=== PATIENT | female | born 1965 | race Caucasian/White ===

== ENCOUNTER → 2016-06-21 | Outpatient (CLI) | payer BC | LOC: GMAM 17:35 | PROVIDERS: ATTEND Family Medicine | DX: R10.9 Unspecified abdominal pain (principal); R55 Syncope and collapse ==

== ENCOUNTER 2016-06-23 03:25 | Emergency (ER) | payer BC ==
[2016-06-23 03:46] VITALS: TEMP 97.4
[2016-06-23] MEDS ORDERED: ONDANSETRON ODT 8 MG TAB SL ONE (03:46)
--- NOTE | 2016-06-23 03:56 | ED.PDOC ---
History of Present Illness - General Chief Complaint: GI Problem Stated Complaint: nausea, and dizzy Time Seen by Provider: 06/23/16 03:55 Source: patient, RN notes reviewed, Vital Signs reviewed Exam Limitations: no limitations - History of Present Illness Initial Comments: Elizabeth 51 y/o female with no chronic illness stated that she had syncopal episode 5 days ago at a restaurant in [place] and had 2 broken ribs left side chest as told by his doctor.She declined to go to er in after passing out but followed with her md here in [place] was prescribed tramadol for pain. Severity: moderate Improving Factors: nothing Worsening Factors: nothing Associated Symptoms: nausea/vomiting Allergies/Adverse Reactions: Allergies Codeine Allergy (Severe, Verified 03/12/16 17:38) Vomitting She passes out Home Medications: Ambulatory Orders Albuterol Inhaler [Ventolin Hfa Inhaler] 2 puff INH Q4HR PRN #90 inh 03/12/16 Doxycycline (Monohydrate) [Doxycycline] 100 mg PO BID #20 cap 03/12/16 Ketoconazole (Topical) [Ketoconazole] 2 % TOP BID #60 cre 03/12/16 Promethazine HCl 50 mg PO Q6HRS PRN #30 tab 06/23/16 predniSONE [Prednisone] 10 mg PO BID #7 tab 06/23/16 Review of Systems - Review of Systems Constitutional: States: no symptoms reported EENTM: States: no symptoms reported Respiratory: States: no symptoms reported Cardiology: States: no symptoms reported Gastrointestinal/Abdominal: States: nausea, vomiting Genitourinary: States: no symptoms reported Musculoskeletal: States: other - chest wall pain left Skin: States: no symptoms reported Neurological: States: other - dizziness,history of syncopal episode Past Medical History (General) - Patient Medical History Hx Seizures: No Hx Stroke: No Hx Dementia: No Hx Asthma: No Hx of COPD: No Hx Cardiac Disorders: No Hx Congestive Heart Failure: No Hx Pacemaker: No Hx Hypertension: No Hx Thyroid Disease: No Hx Diabetes: No Hx Gastroesophageal Reflux: No Hx Renal Disease: No Hx Cancer: No Hx of HIV: No Hx Hepatitis C: No Hx MRSA: No Surgical History: appendectomy, other - knee - Vaccination History Hx Tetanus, Diphtheria Vaccination: Yes Hx Influenza Vaccination: No Hx Pneumococcal Vaccination: No - Social History Hx Tobacco Use: Yes Hx Alcohol Use: Yes Hx Substance Use: No Hx Substance Use Treatment: No Hx Depression: No Hx Physical Abuse: No Hx Emotional Abuse: No Hx Suspected Abuse: No - Activities of Daily Living Patient Lives Alone: No - family - Female History Patient : No Family Medical History - Family History Mother Family History: No Known Living Status: Still Living Physical Exam - Physical Exam General Appearance: Alert, Anxious, No apparent distress Eye Exam: bilateral normal Ears, Nose, Throat: hearing grossly normal, normal ENT inspection, normal pharynx Neck: non-tender, full range of motion, supple Respiratory: normal breath sounds, no respiratory distress, other - tenderness left side chest Cardiovascular/Chest: normal peripheral pulses, regular rate, rhythm, no edema, no gallop, no JVD, no murmur Peripheral Pulses: radial,right: 2+, radial,left: 2+ Gastrointestinal/Abdominal: normal bowel sounds, non tender, soft, no organomegaly Back Exam: normal inspection, no CVA tenderness, no vertebral tenderness Extremity: normal range of motion, non-tender, normal inspection Neurologic: no motor/sensory deficits, alert, oriented x 3, other - speech fluent Skin Exam: normal color, warm/dry Lymphatic: no adenopathy Progress - Results/Orders Results/Orders: 06/23/16 03:47 UA [URINALYSIS] Stat 06/23/16 03:56 URINE DRUG SCREEN, 7 ASSAY Stat URINALYSIS Stat 06/23/16 03:58 EKG Assessment ONCE 06/23/16 04:00 EKG STAT Laboratory Results WBC 7.3 K/mm3 (4.8-10.8) 06/23/16 04:40 RBC 5.02 M/mm3 (4.20-5.40) 06/23/16 04:40 Hgb 15.4 gm/dL (12.0-16.0) 06/23/16 04:40 Hct 45.0 % (36.0-47.0) 06/23/16 04:40 MCV 89.7 fl (81.0-99.0) 06/23/16 04:40 MCH 30.6 pg (27.0-31.0) 06/23/16 04:40 MCHC 34.1 g/dL (33.0-37.0) 06/23/16 04:40 RDW 13.7 % (11.5-14.5) 06/23/16 04:40 Plt Count 205 K/mm3 (130-400) 06/23/16 04:40 MPV 7.9 fl (7.40-10.4) 06/23/16 04:40 Absolute Neuts (auto) 6.60 K/uL (1.8-6.8) 06/23/16 04:40 Absolute Lymphs (auto) 0.40 K/uL (1.0-3.4) L 06/23/16 04:40 Absolute Monos (auto) 0.30 K/uL (0.2-0.8) 06/23/16 04:40 Absolute Eos (auto) 0.10 K/uL (0.0-0.4) 06/23/16 04:40 Absolute Basos (auto) 0.00 K/uL (0.0-0.1) 06/23/16 04:40 Neutrophils % 89.8 % (42.0-78.0) H 06/23/16 04:40 Lymphocytes % 5.1 % (20.0-50.0) L 06/23/16 04:40 Monocytes % 4.1 % (2.0-9.0) 06/23/16 04:40 Eosinophils % 0.8 % (1.0-5.0) L 06/23/16 04:40 Basophils % 0.2 % (0.0-2.0) 06/23/16 04:40 Sodium 137 mmol/L (135-145) 06/23/16 04:40 Potassium 3.5 mmol/L (3.6-5.0) L 06/23/16 04:40 Chloride 101 mmol/L (101-111) 06/23/16 04:40 Carbon Dioxide 27 mmol/L (21-31) 06/23/16 04:40 Anion Gap 12.5 (12-18) 06/23/16 04:40 BUN 26 mg/dL (7-18) H 06/23/16 04:40 Creatinine 0.60 mg/dL (0.6-1.3) 06/23/16 04:40 BUN/Creatinine Ratio 43.3 (10-20) H 06/23/16 04:40 Random Glucose 134 mg/dL (70-105) H 06/23/16 04:40 Serum Osmolality 280.6 mOsm/L (275-295) 06/23/16 04:40 Calcium 9.0 mg/dL (8.4-10.2) 06/23/16 04:40 Total Bilirubin 0.7 mg/dL (0.2-1.0) 06/23/16 04:40 AST 19 IU/L (10-42) 06/23/16 04:40 ALT 19 IU/L (10-60) 06/23/16 04:40 Alkaline Phosphatase 68 IU/L (42-121) 06/23/16 04:40 Serum Total Protein 7.8 gm/dL (6.4-8.2) 06/23/16 04:40 Albumin 4.2 g/dl (3.2-5.5) 06/23/16 04:40 Globulin 3.6 gm/dL (2.3-3.5) H 06/23/16 04:40 Albumin/Globulin Ratio 1.2 (1.1-1.9) 06/23/16 04:40 Lipase 24 U/L (22-51) D 06/23/16 04:40 - EKG/XRAY/CT EKG: Sinus, no ST T wave changes - no acute changes noted Departure - Departure Clinical Impression: Dizziness, nonspecific Nausea & vomiting Qualifiers: Vomiting type: unspecified Vomiting Intractability: non-intractable Qualifier Code: (R11.2) Nausea with vomiting, unspecified Time of Disposition: 05:44 Disposition: Discharge to Home or Self Care Condition: Good Departure Forms: ED Discharge - Pt. Copy, Patient Portal Self Enrollment Instructions: DI for Dizziness-Nonvertigo, Combating Dizziness in Older Adults Prescriptions: Promethazine HCl 50 mg PO Q6HRS PRN #30 tab PRN Reason: Nausea predniSONE [Prednisone] 10 mg PO BID #7 tab Home Medications: Ambulatory Orders Albuterol Inhaler [Ventolin Hfa Inhaler] 2 puff INH Q4HR PRN #90 inh 03/12/16 Doxycycline (Monohydrate) [Doxycycline] 100 mg PO BID #20 cap 03/12/16 Ketoconazole (Topical) [Ketoconazole] 2 % TOP BID #60 cre 03/12/16 Promethazine HCl 50 mg PO Q6HRS PRN #30 tab 06/23/16 predniSONE [Prednisone] 10 mg PO BID #7 tab 06/23/16
[2016-06-23] MEDS ORDERED: PROMETHAZINE HCL INJ 25 MG/ML VIAL IM ONE (03:58)
[2016-06-23] MEDS ORDERED: LACTATED RINGERS 1,000 ML IVS ONE (03:58)
[2016-06-23] MEDS ORDERED: DEXAMETHASONE INJ 4 MG/ML VIAL IV ONE (03:59)
[2016-06-23] MEDS ORDERED: KETOROLAC TROMETHAMINE INJ 30 MG/ML VIAL IV ONE (04:33)
[2016-06-23 06:01] VITALS: BP 131/84; O2SAT 95
== END 2016-06-23 06:01 | disposition home or self-care (01) ==
LOC: ER 03:25
DX: R11.2 Nausea with vomiting, unspecified (principal); R42 Dizziness and giddiness; Z87.891 Personal history of nicotine dependence; Z88.6 Allergy status to analgesic agent; Z79.899 Other long term (current) drug therapy
CPT/HCPCS: 80053; 83690; 85025; 93005; J1100; J2550; J7120

== ENCOUNTER 2016-11-07 11:17 | Emergency (ER) | payer BC ==
[2016-11-07 11:33] VITALS: BP 140/80; TEMP 98.3; O2SAT 98
--- NOTE | 2016-11-07 11:55 | ED.PDOC ---
History of Present Illness - General Chief Complaint: Eye Problems Stated Complaint: Bilateral Eye pain/itchy Time Seen by Provider: 11/07/16 11:50 Source: patient, RN notes reviewed Exam Limitations: no limitations - History of Present Illness Initial Comments: Maribel Smith 51 y/o female stated that her right eye was red and matted yesterday as well as itching then on waking up this am noted left eye was red , matted and itching. Timing/Duration: gradual, yesterday EENT Location: eye (R), eye (L) Prearrival Treatment: no prearrival treatment Presenting Symptoms: both eyes red and itching Improving Factors: nothing Worsening Factors: nothing Associated Symptoms: denies symptoms Allergies/Adverse Reactions: Allergies Codeine Allergy (Severe, Verified 03/12/16 17:38) Vomitting She passes out Home Medications: Ambulatory Orders Albuterol Inhaler [Ventolin Hfa Inhaler] 2 puff INH Q4HR PRN #90 inh 03/12/16 Doxycycline (Monohydrate) [Doxycycline] 100 mg PO BID #20 cap 03/12/16 Ketoconazole (Topical) [Ketoconazole] 2 % TOP BID #60 cre 03/12/16 Promethazine HCl 50 mg PO Q6HRS PRN #30 tab 06/23/16 predniSONE 10 mg PO BID #7 tab 06/23/16 Sulfacetamide Sod-Prednisolone [Blephamide] 2 cody OP TID #1 cody 11/07/16 Review of Systems - Review of Systems Constitutional: States: no symptoms reported EENTM: States: see HPI Respiratory: States: no symptoms reported Cardiology: States: no symptoms reported Gastrointestinal/Abdominal: States: no symptoms reported Genitourinary: States: no symptoms reported Musculoskeletal: States: no symptoms reported Skin: States: no symptoms reported Neurological: States: no symptoms reported Endocrine: States: no symptoms reported Hematologic/Lymphatic: States: no symptoms reported Past Medical History (General) - Patient Medical History Hx Seizures: No Hx Stroke: No Hx Dementia: No Hx Asthma: No Hx of COPD: No Hx Cardiac Disorders: No Hx Congestive Heart Failure: No Hx Pacemaker: No Hx Hypertension: No Hx Thyroid Disease: No Hx Diabetes: No Hx Gastroesophageal Reflux: No Hx Renal Disease: No Hx Cancer: No Hx of HIV: No Hx Hepatitis C: No Hx MRSA: No Surgical History: appendectomy, other - left knee - Vaccination History Hx Tetanus, Diphtheria Vaccination: No Hx Influenza Vaccination: No Hx Pneumococcal Vaccination: No Immunizations Up to Date: No - Social History Hx Tobacco Use: Yes Hx Alcohol Use: Yes Hx Substance Use: No Hx Substance Use Treatment: No Hx Depression: No Hx Physical Abuse: No Hx Emotional Abuse: No Hx Suspected Abuse: No - Female History Patient : No Family Medical History - Family History Mother Family History: No Known Living Status: Still Living Physical Exam - Physical Exam General Appearance: Alert, Comfortable, No apparent distress Eye Exam: bilateral normal - with glasses, bilateral other - hyperemic palpebral conjuctiva VA 20/20 bilaterally Ear Exam: bilateral ear: auricle normal, canal normal, TM normal Nasal Exam: normal inspection Throat Exam: normal mouth inspection, pharynx normal Neck: non-tender, full range of motion Cardiovascular/Respiratory: regular rate, rhythm, no M/R/G, normal peripheral pulses, normal breath sounds Abdominal Exam: non-tender, no organomegaly Neurologic: alert, normal mood/affect, oriented x 3 Skin Exam: normal color, warm/dry Progress - Progress Progress: 11/07/16 12:01 Vital Signs - 8 hr 11/07/16 11:29 Temperature 98.3 F Pulse Rate [ 73 Left Radial] Respiratory 18 Rate Blood Pressure 140/80 [Left Arm] O2 Sat by Pulse 98 Oximetry Departure - Departure Clinical Impression: Conjunctivitis Qualifiers: Conjunctivitis type: unspecified Laterality: bilateral Qualified Code(s): H10.9 - Unspecified conjunctivitis Time of Disposition: 12:02 Disposition: Discharge to Home or Self Care Condition: Good Departure Forms: ED Discharge - Pt. Copy, Patient Portal Self Enrollment Instructions: DI for Conjunctivitis, Conjunctivitis, The Eyes Have It: Conjunctivitis Referrals: Phil Corbin MD [Primary Care Provider] - 1-2 Weeks Prescriptions: Sulfacetamide Sod-Prednisolone [Blephamide] 2 cody OP TID #1 cody Home Medications: Ambulatory Orders Albuterol Inhaler [Ventolin Hfa Inhaler] 2 puff INH Q4HR PRN #90 inh 03/12/16 Doxycycline (Monohydrate) [Doxycycline] 100 mg PO BID #20 cap 03/12/16 Ketoconazole (Topical) [Ketoconazole] 2 % TOP BID #60 cre 03/12/16 Promethazine HCl 50 mg PO Q6HRS PRN #30 tab 06/23/16 predniSONE 10 mg PO BID #7 tab 06/23/16 Sulfacetamide Sod-Prednisolone [Blephamide] 2 cody OP TID #1 cody 11/07/16
== END 2016-11-07 12:11 | disposition home or self-care (01) ==
LOC: ER 11:17
DX: H10.9 Unspecified conjunctivitis (principal); Z88.6 Allergy status to analgesic agent; Z79.899 Other long term (current) drug therapy; Z87.891 Personal history of nicotine dependence

== ENCOUNTER → 2019-10-10 | Outpatient (CLI) | payer BC ==
--- NOTE | 2019-10-10 16:11 | US ---
EXAM DESCRIPTION: Gall Bladder: ULTRASOUND. CLINICAL HISTORY: EPIGASTRIC PN COMPARISON: None. TECHNIQUE: Transabdominal scanning: Smith-scale and Doppler modes.. Technically difficult study due to patient large body habitus. FINDINGS: Gallbladder: 2.2 x 1.7 cm echogenic stone with acoustic shadowing. No fluid around the gallbladder. No wall thickening. 2.1 mm. Non-tender with transducer pressure. Common bile duct: caliber 4.0 mm within normal limits. Liver: Increased echogenicity; contour liver capsule smooth where seen. No fluid around the liver. Intrahepatic biliary ducts normal caliber. Doppler hepatopedal flow portal vein.. 11 mm normal caliber. Long axis right lobe 15.7 cm. Pancreas: normal size increased echogenicity. Duct not seen. Aorta: 2.4 cm proximally normal caliber. Right kidney: long axis is 10.9 cm. Normal cortical thickness and echogenicity. No echogenic stones or hydronephrosis.. IMPRESSION: 1. 2.2 cm stone in the gallbladder. No wall thickening or fluid. Nontender with transducer pressure. Normal caliber of the common bile duct. 2. Steatosis of the liver upper normal limits in size. Otherwise unremarkable. Fatty infiltration of the pancreas. 3. Right kidney unremarkable. Normal caliber of the proximal aorta. Electronically signed by: Hansel Adams MD 10/10/2019 4:10 PM CDT
== END ==
LOC: US 11:07
PROVIDERS: ATTEND Nurse Practitioner Family
DX: K80.20 Calculus of gallbladder without cholecystitis without obstruction (principal); K76.0 Fatty (change of) liver, not elsewhere classified; K86.89 Other specified diseases of pancreas

== ENCOUNTER 2019-10-26 05:37 | Day surgery (SDC) | payer BC ==
[2019-10-26] MEDS ORDERED: LACTATED RINGERS 1,000 ML ONE ×2 (06:46→12:29)
[2019-10-26] MEDS ORDERED: SODIUM CHLORIDE 0.9% 1000ML 1,000 ML ONE (06:48)
[2019-10-26] MEDS ORDERED: DEXAMETHASONE INJ 10 MG/ML VIAL ONE (07:00)
[2019-10-26] MEDS ORDERED: PROPOFOL 200 MG/20 ML VIAL IV ONE (07:00)
[2019-10-26] MEDS ORDERED: MAGNESIUM SULFATE INJ 1 GM/2 ML VIAL ONE (07:00)
[2019-10-26] MEDS ORDERED: ePHEDrine SULF 50 MG/ML ONE (07:00)
[2019-10-26] MEDS ORDERED: LIDOCAINE 1% 10 ML VIAL INJ ONE (07:00)
[2019-10-26] MEDS ORDERED: METOPROLOL TARTRATE INJ 5 MG/5 ML VIAL IV ONE (07:00)
[2019-10-26] MEDS ORDERED: BUPIVACAINE 0.5% W/EPI 30 ML VIAL INJ ONE (07:07)
[2019-10-26] MEDS ORDERED: LACTATED RINGERS 1,000 ML IVS ONE (10:25)
[2019-10-26] MEDS ORDERED: MIDAZOLAM INJ 5 MG/5 ML VIAL ONE (10:46)
[2019-10-26] MEDS ORDERED: SUGAMMADEX SODIUM 200 MG/2 ML VIAL IV ONE ×3 (11:03→12:27)
[2019-10-26] MEDS ORDERED: fentaNYL CITRATE INJ 50 MCG/ML 2 ML AMP ONE ×2 (11:04→12:18)
[2019-10-26] MEDS ORDERED: KETAMINE HCL 100 MG/ML VIAL ONE (11:04)
[2019-10-26] MEDS ORDERED: FAMOTIDINE INJ 10 MG/ML VIAL IV ONE (11:04)
[2019-10-26] MEDS ORDERED: ROCURONIUM BROMIDE 10 MG/ML VIAL ONE (11:04)
[2019-10-26] MEDS ORDERED: SCOPOLAMINE PATCH 1.5MG 1 EA TD ONE (11:13)
[2019-10-26] MEDS ORDERED: hydrALAZINE HCl 20 MG/ML VIAL ONE (11:48)
[2019-10-26] MEDS ORDERED: HYDROmorphone HCL INJ 2 MG/ML VIAL ONE (11:54)
[2019-10-26] MEDS ORDERED: ONDANSETRON INJ 4 MG/2 ML VIAL IV ONE (12:57)
[2019-10-26] MEDS ORDERED: ONDANSETRON INJ 4 MG/2 ML VIAL ONE (12:58)
--- NOTE | 2019-10-26 13:11 | OP ---
DATE OF PROCEDURE: 10/26/19 PREOPERATIVE DIAGNOSIS: 1. Symptomatic cholelithiasis. POSTOPERATIVE DIAGNOSIS: 1. Symptomatic cholelithiasis. PROCEDURE: 1. Laparoscopic cholecystectomy. SURGEON: Duke Cruz MD. ANESTHESIA: General and local. FINDINGS: Normal anatomy. COMPLICATIONS: None. ESTIMATED BLOOD LOSS: Minimal. SPECIMEN: Gallbladder. CONDITION: Stable. PLAN: Discharge. INDICATION: As stated. PROCEDURE: General anesthesia was induced. The patient was prepped and draped in sterile fashion. Marcaine 0.5% with epinephrine was used at all incision sites. While maintaining upward traction, a mandi was made near the base of the umbilicus. Veress needle was introduced. There was free flow of fluid into the peritoneal cavity which was insufflated to an appropriate level with CO2 gas. The 5 mm trocar was placed followed by the camera. There was no evidence of bleeding or bowel injury. The patient was positioned and subxiphoid and lateral ports were placed under direct visualization without difficulty. The gallbladder fundus was easily identified. It was grasped and retracted superiorly and laterally. There were quite a few anterior adhesions that were easily taken down exposing the infundibulum. It was grasped. The duct and artery were then dissected out and clearly visualized through the triangle of Calot. Each was triply ligated. The gallbladder was then dissected off the fossa routinely and removed through the subxiphoid incision. She did have a moderate sized stone identified upon removal. The fossa was examined. It remained hemostatic. The clips were intact. There was no bleeding or bile leakage. The subxiphoid fascia was then closed with 0 Vicryl using the suture passer. It was airtight and non-bleeding. The remaining trocars were removed. There was no bleeding from the trocar sites. The wounds were irrigated and closed with Monocryl. Dressings were applied. The patient was awakened and taken to Recovery in to be discharged. #[id number] cc: LEONEL Hager
[2019-10-26] MEDS ORDERED: HYDROcodone 5MG/APAP 325MG 1 EA TAB ONE (13:12)
[2019-10-26] MEDS ORDERED: HYDROcodone 5MG/APAP 325MG 1 EA TAB PO ONE (13:30)
[2019-10-26 14:43] VITALS: BP 142/89; TEMP 96.7; O2SAT 96
== END 2019-10-26 14:40 | disposition home or self-care (01) ==
LOC: AMB 05:37
PROVIDERS: ATTEND Surgery
DX: K80.10 Calculus of gallbladder with chronic cholecystitis without obstruction (principal); I10 Essential (primary) hypertension; E66.9 Obesity, unspecified; F17.200 Nicotine dependence, unspecified, uncomplicated; Z88.5 Allergy status to narcotic agent; Z79.899 Other long term (current) drug therapy
CPT/HCPCS: 00790; 36415; 47562; 80048; 81025; 85025; 93005; J0360; J1100; J1170; J2250; J2405; J3010; J3475; J3490; J7030; J7120

== ENCOUNTER 2020-06-02 16:52 | Emergency (ER) | payer BC ==
--- NOTE | 2020-06-02 17:09 | ED.PDOC ---
History of Present Illness - General Time Seen by Provider: 06/02/20 17:05 Source: patient Additional Information: 55-year-old female, presents to the ER because of dark stools, patient said that she noticed a dark stool yesterday, and also this morning and has some point when she was having a bowel movement she became dizzy and passed out, patient has neurological deficit at the moment, admits some diffuse abdominal pain and the dark stools, no blood thinners, patient admits to vaping but denies drugs denies cigarettes, - History of Present Illness Timing/Duration: other - yesterday Improving Factors: nothing Worsening Factors: nothing Associated Symptoms: denies symptoms Allergies/Adverse Reactions: Allergies Codeine Allergy (Severe, Verified 10/22/19 11:19) Vomitting She passes out. Patient also states itching. Home Medications: Ambulatory Orders Bc Powder 3 ea PO DAILY 10/22/19 Losartan Potassium 100 mg PO DAILY 10/22/19 Review of Systems - Review of Systems Constitutional: States: no symptoms reported EENTM: States: no symptoms reported Respiratory: States: no symptoms reported Gastrointestinal/Abdominal: States: nausea Musculoskeletal: States: no symptoms reported Skin: States: no symptoms reported Neurological: States: no symptoms reported Endocrine: States: no symptoms reported, intolerance to heat Past Medical History (General) - Patient Medical History Hx Seizures: No Hx Stroke: No Hx Dementia: No Hx Asthma: No Hx of COPD: No Hx Cardiac Disorders: No Hx Congestive Heart Failure: No Hx Pacemaker: No Hx Hypertension: No Hx Thyroid Disease: No Hx Diabetes: No Hx Gastroesophageal Reflux: No Hx Renal Disease: No Hx Cancer: No Hx of HIV: No Hx Hepatitis C: No Hx MRSA: No - Vaccination History Hx Tetanus, Diphtheria Vaccination: No Hx Influenza Vaccination: No Hx Pneumococcal Vaccination: No - Social History Hx Tobacco Use: Yes Hx Alcohol Use: Yes Hx Substance Use: No Hx Substance Use Treatment: No Hx Depression: No Hx Physical Abuse: No Hx Emotional Abuse: No Hx Suspected Abuse: No - Female History Patient : No Family Medical History - Family History Mother Family History: No Known Living Status: Still Living Physical Exam - Physical Exam General Appearance: Well Developed, Well Groomed, Well Nourished Eye Exam: bilateral normal Ears, Nose, Throat: hearing grossly normal, normal ENT inspection, normal pharynx Neck: non-tender, full range of motion, supple, normal inspection Respiratory: chest non-tender, lungs clear, normal breath sounds, no respiratory distress, no accessory muscle use Cardiovascular/Chest: normal peripheral pulses, regular rate, rhythm, no edema, no gallop, no JVD, no murmur Gastrointestinal/Abdominal: normal bowel sounds, non tender, soft, no organomegaly, no pulsatile mass Rectal Exam: black stool, hemorrhoids Extremity: normal range of motion 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, no motor/sensory deficits, alert, normal mood/affect, oriented x 3 Skin Exam: normal color Lymphatic: no adenopathy Progress - Progress Progress: 55-year-old female, presents to the ER because of having diarrhea today pain chest pain, syncope episode, patient has had a history of coronary artery disease with one previous stent, patient troponins were negative EKG did not show any acute ischemic changes, heart rate at 97 no extravaginal depressions, patient has neurological deficit, and does admit feeling back today, and she stated that she was on the phone gastropharyngeal remember and denies any bloody stools. Because of patient history of coronary disease, not any neurological deficit, and not feeling well, I decided to consult the case with the hospitalist for admission, vomiting, follow-up on any changes in delta troponins chest xrqay Did not show any evidence of mediastinum to suggest aortic dissection, Patient is COVID-19 negative 06/02/20 17:20 Departure - Departure Clinical Impression: Chest pain Qualifiers: Chest pain type: unspecified Qualified Code(s): R07.9 - Chest pain, unspecified Syncope Qualifiers: Syncope type: unspecified Qualified Code(s): R55 - Syncope and collapse Disposition: Admit Patient Condition: Fair Referrals: Radhika Hines NP [Primary Care Provider] - 1-2 Weeks Home Medications: Ambulatory Orders Bc Powder 3 ea PO DAILY 10/22/19 Losartan Potassium 100 mg PO DAILY 10/22/19 Decision To Admit - Decistion To Admit Decision to Admit Reason: Admit from ER Decision to Admit Date: 06/02/20 Decision to Admit Time: 17:19
--- NOTE | 2020-06-02 17:33 | RAD ---
EXAM: Chest,1 View CLINICAL INDICATION: Syncope COMPARISON: 03/12/2016 FINDINGS: A single view of the chest was obtained. The heart size is normal. The pulmonary vascularity is unremarkable. The lungs are clear. There is no consolidation, infiltrate, pleural effusion, or pneumothorax. IMPRESSION: No evidence of active pulmonary disease. Electronically signed by: Chris Gustafson MD 06/02/2020 5:32 PM BUSINESS INTELLIGENCE DIRECTOR
--- NOTE | 2020-06-02 17:51 | ED.PDOC ---
History of Present Illness - General Chief Complaint: GI Problem Stated Complaint: rectal bleeding Time Seen by Provider: 06/02/20 17:05 Source: RN notes reviewed, Vital Signs reviewed Exam Limitations: no limitations Additional Information: , ER because since last night she is having some dark stools, and this morning when she was in the toilet she had some dark stools, but also has some victor manuel phoresis lightheadedness, and she had a syncope episode, she is has some chest discomfort and some epigastric pain, patient does not have any medical problems no blood thinners she vapes but does not smoke does not drink, no illegal drugs. Present during initial evaluation, does admit some diffuse abdominal pain epigastric discomfort at the moment, - History of Present Illness Timing/Duration: other - yesterday Improving Factors: nothing Worsening Factors: nothing Associated Symptoms: chest pain, nausea/vomiting, other - syncope Allergies/Adverse Reactions: Allergies Codeine Allergy (Severe, Verified 06/02/20 17:24) Vomitting She passes out. Patient also states itching. Home Medications: Ambulatory Orders Bc Powder 3 ea PO DAILY 10/22/19 Losartan Potassium 100 mg PO DAILY 10/22/19 Review of Systems - Review of Systems Constitutional: States: diaphoresis EENTM: States: no symptoms reported Respiratory: States: no symptoms reported Cardiology: States: chest pain Gastrointestinal/Abdominal: States: abdominal pain, other - gi bleeding Genitourinary: States: no symptoms reported Musculoskeletal: States: no symptoms reported Skin: States: no symptoms reported Neurological: States: no symptoms reported Endocrine: States: no symptoms reported Hematologic/Lymphatic: States: no symptoms reported Past Medical History (General) - Patient Medical History Hx Seizures: No Hx Stroke: No Hx Dementia: No Hx Asthma: No Hx of COPD: No Hx Cardiac Disorders: No Hx Congestive Heart Failure: No Hx Pacemaker: No Hx Hypertension: No Hx Thyroid Disease: No Hx Diabetes: No Hx Gastroesophageal Reflux: No Hx Renal Disease: No Hx Cancer: No Hx of HIV: No Hx Hepatitis C: No Hx MRSA: No Surgical History: appendectomy, cholecystectomy, other - Vaccination History Hx Tetanus, Diphtheria Vaccination: No Hx Influenza Vaccination: No Hx Pneumococcal Vaccination: No - Social History Hx Tobacco Use: Yes Hx Alcohol Use: Yes Hx Substance Use: No Hx Substance Use Treatment: No Hx Depression: No Hx Physical Abuse: No Hx Emotional Abuse: No Hx Suspected Abuse: No - Female History Patient : No Family Medical History - Family History Mother Family History: No Known Living Status: Still Living Physical Exam - Physical Exam General Appearance: Well Developed, Well Groomed, Well Hydrated, Well Nourished Ears, Nose, Throat: hearing grossly normal, normal ENT inspection, normal pharynx Neck: non-tender, full range of motion, supple, normal inspection Respiratory: chest non-tender, lungs clear, normal breath sounds, no respiratory distress, no accessory muscle use Cardiovascular/Chest: normal peripheral pulses, regular rate, rhythm, no edema, no gallop, no JVD, no murmur Gastrointestinal/Abdominal: tenderness, other - dark stool Rectal Exam: black stool, hemorrhoids Back Exam: normal inspection Extremity: normal range of motion, non-tender, normal inspection, no pedal edema, no calf tenderness, normal capillary refill Neurologic: chief information officer II-XII nml as tested, no motor/sensory deficits, alert, normal mood/affect, oriented x 3 Skin Exam: normal color Lymphatic: no adenopathy Progress - Progress Progress: 06/02/20, Presents to the ER because of a syncope episode and dark stools, patient is not on any blood thinners, has some chest discomfort and shortness of breath or nausea or epigastric pain, and diffuse abdominal pain on physical exam I did notice some nonthrombosed external hemorrhoid, and dark stools, patient hemoglobin was within normal limits patient EKG did not show any acute ischemic changes, patient heart rate was 97 anglican of depression, chest x-ray did not show any abnormalities, but I noted the patient's troponins were higher than the level normal, since patient did have a syncope this morning so epigastric discomfort, I will transfer this patient to high-level care facility, will order a dose of aspirin, will hold the Lovenox until discussed with the admitting physician To have a level of care facility will she will be seen by hand spray operator and also seen by a cardiology 17:52 06/02/20 17:54 Departure - Departure Clinical Impression: Chest pain Qualifiers: Chest pain type: unspecified Qualified Code(s): R07.9 - Chest pain, unspecified Syncope Qualifiers: Syncope type: unspecified Qualified Code(s): R55 - Syncope and collapse GI bleeding Qualifiers: GI bleed type/associated pathology: melena Qualified Code(s): K92.1 - Melena Disposition: Transfer to Hospital Condition: Fair Referrals: Radhika Hines NP [Primary Care Provider] - 1-2 Weeks Home Medications: Ambulatory Orders Bc Powder 3 ea PO DAILY 10/22/19 Losartan Potassium 100 mg PO DAILY 10/22/19 Transfer to Outside Facility - Transfer Information Decision to Transfer Date: 06/02/20 Decision to Transfer Time: 17:54 Reason for Transfer: specialized care not available
--- NOTE | 2020-06-02 18:20 | CT ---
EXAM: Abdomen/Pelvis w/Contrast CLINICAL INDICATION: Abdominal pain. COMPARISON: There is no previous study for comparison. TECHNIQUE: The CT scan was done using contiguous axial 5 mm postcontrast sections through the abdomen and pelvis including IV contrast. This exam was performed according to our departmental dose-optimization program, which includes automated exposure control, adjustment of the mA and/or kV according to patient size and/or use of iterative reconstruction technique. FINDINGS: The visualized portions of the lung bases are clear. The gallbladder is surgically absent. The liver, kidneys, spleen, right adrenal gland, and pancreas are unremarkable. There is a left adrenal nodule measuring 1.8 x 1.7 cm with average Hounsfield unit density of 24. The aorta contains atherosclerotic calcifications without evidence of aneurysm. There is diverticulosis of the colon without findings of acute diverticulitis. A fat-containing umbilical hernia is noted. There is no free air, free fluid, or abscess. IMPRESSION: 1. No evidence of an acute intra-abdominal process. 2. Fat-containing umbilical hernia. 3. Left adrenal nodule, most likely adenoma. One-year follow-up adrenal protocol CT or MRI scan is recommended. Electronically signed by: Chris Gustafson MD 06/02/2020 6:18 PM [employer]
[2020-06-02] MEDS ORDERED: ASPIRIN (ENTERIC COATED) 325 MG TAB PO ONE (18:34)
[2020-06-02] MEDS ORDERED: hydrALAZINE HCl 20 MG/ML VIAL IV ONE ×2 (18:56→19:48)
[2020-06-02] MEDS ORDERED: PANTOPRAZOLE SODIUM IV 40 MG VIAL IV ONE (18:59)
[2020-06-02 23:21] VITALS: BP 122/76
[2020-06-02 23:31] VITALS: O2SAT 99
[2020-06-02 23:52] VITALS: TEMP 98
== END 2020-06-02 23:55 | disposition short-term general hospital (02) ==
LOC: ER 16:52
DX: R07.9 Chest pain, unspecified (principal); R55 Syncope and collapse; K92.1 Melena; K64.5 Perianal venous thrombosis; R10.13 Epigastric pain; F17.290 Nicotine dependence, other tobacco product, uncomplicated; Z90.49 Acquired absence of other specified parts of digestive tract; Z88.5 Allergy status to narcotic agent; Z79.899 Other long term (current) drug therapy; Z20.822 Contact with and (suspected) exposure to COVID-19
CPT/HCPCS: 36415; 71045; 74177; 80053; 82270; 84484; 85025; 85610; 85730; 87486; 87581; 87633; 87635; 93005; 96374; 96375; 96376; 99285; J0360